=== PATIENT | female | born 1940 | race Caucasian/White ===

== ENCOUNTER 2018-05-10 21:57 | Observation (INO) ==
[2018-05-10] MEDS ORDERED: Piperacil/Tazo 3.375 GM Premix 50 ML IV.SIG ONE (22:11)
--- NOTE | 2018-05-10 22:23 | ED ---
HPI General Chief complaint: Animal Bite Stated complaint: CAT BITE Time Seen by Provider: 05/10/18 22:07 Source: patient Mode of arrival: ambulatory Limitations: no limitations History of Present Illness HPI narrative: Patient is a 78 year old female who comes in complaining of pain and swelling to her left hand. She was bitten by a feral cat on Sunday and has developed redness and swelling to the area since then. She was seen here yesterday, given a dose of IV Unasyn and refused to stay in the hospital. She was discharged with Clindamycin and Levaquin and took it, but says she noticed redness developing up her arm and became nervous. She denies fever or chills. She denies other symptoms. Severity is moderate. Related Data Home Medications Medication Instructions Recorded Confirmed lisinopril 20 mg PO BID 05/09/18 05/10/18 Previous Rx's Medication Instructions Recorded clindamycin HCl 600 mg PO Q8H 10 Days #60 cap 05/09/18 levofloxacin [Levaquin] 750 mg PO DAILY 10 Days #10 tab 05/09/18 Allergies Allergy/AdvReac Type Severity Reaction Status Date / Time No Known Allergies Allergy Verified 05/10/18 22:49 Review of Systems ROS: all other systems reviewed are negative Constitutional Denies chills and Denies fever(s) ENT Denies dizziness Cardiovascular Denies chest pain and Denies dyspnea Respiratory Denies cough Gastrointestinal Denies abdominal pain Musculoskeletal Denies myalgias and Denies arthralgias Integumentary/Breasts Reports wounds Neurologic Denies focal weakness and Denies numbness [facility] Medical History Medical History Hip pain (Acute) Hypertension (Acute) Social History Social History Substance History: No History of Abuse Second Hand Smoke Exposure: No Smoking Status: Former smoker Tobacco Type: Cigarettes How Often Do You Have a Drink Containing Alcohol: Never Recent Travel in [facility] within the Last 8 Weeks: No Recent Out of Country Travel within the Last 8 Weeks: No Exam Narrative Exam Narrative: GENERAL: Awake and alert, in no acute distress. SKIN: Focused skin assessment warm/dry. Erythema and warmth of the left hand from the wrist to the PIP joints on her fingers. Patch of erythema and warmth to her left bicep. Wounds present to the dorsum of the hand. No definable abscess. HEAD: Atraumatic. Normocephalic. EYES: Pupils equal and round. No scleral icterus. ENT: Mucous membranes pink and moist. NECK: Trachea midline. No JVD. CARDIOVASCULAR: Regular rate and rhythm. No murmur appreciated. RESPIRATORY: No accessory muscle use. Clear to auscultation. Breath sounds equal bilaterally. GASTROINTESTINAL: Abdomen soft, non-tender, nondistended. MUSCULOSKELETAL: No obvious deformities. No clubbing. No cyanosis. Edema of the left hand. Radial pulse intact. NEUROLOGICAL: Awake and alert. No obvious cranial nerve deficits. Motor grossly within normal limits. Normal speech. PSYCHIATRIC: Appropriate mood and affect; insight and judgment normal. Course Initial Documented Vital Signs Temperature 98.1 F 05/10/18 22:03 Pulse Rate 113 H 05/10/18 22:03 Respiratory Rate 20 05/10/18 22:03 Blood Pressure 176/82 H 05/10/18 22:03 Last Documented Vital Signs Temperature 98.1 F 05/10/18 22:03 Pulse Rate 78 05/10/18 22:43 Respiratory Rate 18 05/10/18 22:43 Blood Pressure 133/61 05/10/18 22:43 Medical Decision Making MDM Narrative Medical decision making narrative: Patient is a 78 year old female who comes in complaining of redness and swelling to her left hand and arm. She was here yesterday for the same thing and was advised to stay then for IV antibiotics, but refused. She returns due to worsening symptoms. IV established, labs sent. WBC count is 11.6 today, slightly increased from yesterday. Patient given IV Zosyn. She will be admitted for further management. She received the rabies vaccine and immunoglobulin yesterday. Medical Screen Exam Complete: Yes Emergency Medical Condition: Yes Differential Diagnosis Differential Diagnosis: cellulitis vs abscess vs bacteremia Medical Records Medical records reviewed: Yes I reviewed the patient's medical records. Lab Data Lab results reviewed: Yes I reviewed the patient's lab results. Result diagrams: 05/10/18 22:20 05/10/18 22:20 Lab Results 05/10/18 05/10/18 Range/Units 22:20 22:20 CBC w Diff Auto diff final WBC 11.6 H (4.0-11.0) th/mm3 RBC 3.66 L (4.00-5.30) mil/mm3 Hgb 11.7 (11.6-15.3) gm/dL Hct 34.4 L (35.0-46.0) % MCV 93.8 (80.0-100.0) fL MCH 32.0 (27.0-34.0) pg MCHC 34.1 (32.0-36.0) % RDW 12.1 (11.6-17.2) % Plt Count 346 (150-450) th/mm3 MPV 7.9 (7.0-11.0) fL Neut % (Auto) 88.5 H (16.0-70.0) % Lymph % (Auto) 5.8 L (9.0-44.0) % Reeves % (Auto) 4.8 (0.0-8.0) % Eos % (Auto) 0.1 (0.0-4.0) % Baso % (Auto) 0.8 (0.0-2.0) % Neut # (Auto) 10.2 H (1.8-7.7) th/mm3 Lymph # (Auto) 0.7 L (1.0-4.8) th/mm3 Reeves # (Auto) 0.6 (0.0-0.9) th/mm3 Eos # (Auto) 0.0 (0.0-0.4) th/mm3 Baso # (Auto) 0.1 (0.0-0.2) th/mm3 WBC Differential . Differential Comment . Sodium 131 L (136-145) meq/L Potassium 4.1 (3.5-5.1) meq/L Chloride 99 (98-107) meq/L Carbon Dioxide 20.8 L (21.0-32.0) meq/L Anion Gap 11 (5-15) meq/L BUN 22 H (7-18) mg/dL Creatinine 1.30 H (0.50-1.00) mg/dL Estimated GFR 40 L (>89) mL/min Random Glucose 109 H (74-106) mg/dL Calcium 9.2 (8.5-10.1) mg/dL Total Bilirubin 0.7 (0.2-1.0) mg/dL AST 20 (15-37) U/L ALT 22 (10-53) U/L Total Protein 7.8 (6.4-8.2) g/dL Albumin 3.4 (3.4-5.0) g/dL Discharge Plan Discharge Disposition Patient Disposition: 30 Still Patient Discharge Condition Condition: Stable Discharge Details Diagnosis: Cat bite, Cellulitis Physicians Team ED Provider: Merlyn Peterson Primary Care Provider: Kae Fierro Rxs /Orders / Referrals /Forms Prescriptions: No Action lisinopril 20 mg Tablet 20 mg PO BID RF: 0 clindamycin HCl 300 mg capsule 600 mg PO Q8H 10 Days Qty: 60 RF: 0 levofloxacin [Levaquin] 750 mg tablet 750 mg PO DAILY 10 Days Qty: 10 RF: 0 Status ED Status: Triaged
[2018-05-10 22:35] LABS: Baso # (Auto) 0.1 th/mm3 (0.0-0.2); Baso % (Auto) 0.8 % (0.0-2.0); Eos % (Auto) 0.1 % (0.0-4.0); Hematocrit 34.4 % (35.0-46.0); Hemoglobin 11.7 gm/dL (11.6-15.3); Lymph # (Auto) 0.7 th/mm3 (1.0-4.8); Lymph % (Auto) 5.8 % (9.0-44.0); Mean Corpuscular HGB Conc 34.1 % (32.0-36.0); Mean Corpuscular Volume 93.8 fL (80.0-100.0); Mean Platelet Volume 7.9 fL (7.0-11.0); Mono # (Auto) 0.6 th/mm3 (0.0-0.9); Mono % (Auto) 4.8 % (0.0-8.0); Neut # (Auto) 10.2 th/mm3 (1.8-7.7); Neut % (Auto) 88.5 % (16.0-70.0); Platelet Count 346 th/mm3 (150-450); Red Blood Count 3.66 mil/mm3 (4.00-5.30); Red Cell Distribution Width 12.1 % (11.6-17.2); White Blood Count 11.6 th/mm3 (4.0-11.0)
[2018-05-10 22:45] LABS: Chloride 99 meq/L (98-107); Potassium 4.1 meq/L (3.5-5.1); Sodium 131 meq/L (136-145)
[2018-05-10 22:48] LABS: Calcium 9.2 mg/dL (8.5-10.1)
[2018-05-10 22:49] LABS: Albumin 3.4 g/dL (3.4-5.0); Anion Gap 11 meq/L (5-15); Blood Urea Nitrogen 22 mg/dL (7-18); Carbon Dioxide 20.8 meq/L (21.0-32.0); Glucose,Random 109 mg/dL (74-106)
[2018-05-10 22:52] LABS: Alanine Aminotransferase 22 U/L (10-53); Aspartate Aminotransferase 20 U/L (15-37); Glomerular Filtration Rate 40 mL/min (>89)
[2018-05-10 22:54] LABS: Total Protein 7.8 g/dL (6.4-8.2)
[2018-05-10 22:55] LABS: Alkaline Phosphatase 72 U/L (45-117)
[2018-05-10] MEDS ORDERED: Sodium Chlor 0.9% Inj 500 ML IV.SIG SCH (23:00)
[2018-05-10] MEDS ORDERED: Vancomycin Consult Pharmacy OTHER PRN (23:04)
[2018-05-10] MEDS ORDERED: Bisacodyl 10 MG Supp RECTAL PRN (23:05)
[2018-05-10] MEDS: Sod Chloride 0.9% Inj 1,000 ML IV.CONT SCH (23:26)
[2018-05-11] MEDS ORDERED: Vancomycin Inj 1,000 MG in Sodium Chlor 0.9% Inj 250 ML IV.SIG ONE ×2
[2018-05-11] MEDS: Ampicillin/Sulbactam Inj 3 GM in Sodium Chloride 0.9% Inj 100 ML IV.SIG SCH ×4 (03:07→21:39)
[2018-05-11 07:35] LABS: Baso % (Auto) 0.3 % (0.0-2.0); Eos % (Auto) 0.4 % (0.0-4.0); Hematocrit 31.3 % (35.0-46.0); Hemoglobin 10.4 gm/dL (11.6-15.3); Lymph # (Auto) 0.8 th/mm3 (1.0-4.8); Lymph % (Auto) 10.7 % (9.0-44.0); Mean Corpuscular HGB Conc 33.2 % (32.0-36.0); Mean Corpuscular Hemoglobin 31.3 pg (27.0-34.0); Mean Corpuscular Volume 94.1 fL (80.0-100.0); Mean Platelet Volume 7.9 fL (7.0-11.0); Mono # (Auto) 0.8 th/mm3 (0.0-0.9); Mono % (Auto) 10.3 % (0.0-8.0); Neut # (Auto) 6.2 th/mm3 (1.8-7.7); Neut % (Auto) 78.3 % (16.0-70.0); Platelet Count 334 th/mm3 (150-450); Red Blood Count 3.33 mil/mm3 (4.00-5.30); Red Cell Distribution Width 12.1 % (11.6-17.2); White Blood Count 7.8 th/mm3 (4.0-11.0)
[2018-05-11 07:41] LABS: Chloride 106 meq/L (98-107); Potassium 4.1 meq/L (3.5-5.1); Sodium 138 meq/L (136-145)
[2018-05-11 07:45] LABS: Calcium 8.6 mg/dL (8.5-10.1)
[2018-05-11 08:06] LABS: Alanine Aminotransferase 18 U/L (10-53); Albumin 3.1 g/dL (3.4-5.0); Alkaline Phosphatase 60 U/L (45-117); Anion Gap 9 meq/L (5-15); Aspartate Aminotransferase 17 U/L (15-37); Blood Urea Nitrogen 17 mg/dL (7-18); Carbon Dioxide 22.7 meq/L (21.0-32.0); Glomerular Filtration Rate 48 mL/min (>89); Glucose,Random 84 mg/dL (74-106); Total Protein 6.6 g/dL (6.4-8.2)
[2018-05-11] MEDS: Acetaminophen 325 MG Tablet PO PRN ×4 (09:02→21:38)
[2018-05-11] MEDS: Sod Chloride 0.9% Inj 1,000 ML IV.CONT SCH (09:18)
--- NOTE | 2018-05-11 11:30 | P.HP ---
History of Present Illness Service: Hospitalist Primary Care Physician: Kae Fierro MD Chief Complaint: Cat bite. History of Present Illness: Ms. Tan is a pleasant 78-year-old female with a history of hypertension who presents to the emergency department on 05/10/2018 due to a cat bite on her left arm which caused pain and swelling. On 04/04/2018, patient was trying to trap a feral cat when the cat bit her left hand and forearm area. She developed some pain and redness. She was seen in the emergency department the day prior to this admission. Patient refused to stay in the hospital. She was discharged on clindamycin and Levaquin. Due to worsening of her symptoms including erythema, patient decided to come back to the hospital and subsequently she was admitted. She was started on Unasyn as well as vancomycin. Past medical history: Hip pain, hypertension Past surgical history: No previous major surgeries. Family history: No family history of all tremors of Parkinson's Social history: Patient denies using tobacco or alcohol. Review of Systems All other systems reviewed negative except as stated in HPI [facility] - History History Provided By: Patient - Medical History Medical History: Medical History (Last Reviewed 05/11/18 @ 13:50 by Tori Patel DO) Hip pain Hypertension - Surgical History Surgical History: Surgical History (Last Reviewed 05/11/18 @ 13:50 by Tori Patel DO) S/P appendectomy S/P tonsillectomy and adenoidectomy - Tobacco History Second Hand Smoke Exposure: No Tobacco Use In Past 30 Days: No Smoking Status: Former smoker Tobacco Type: Cigarettes - Alcohol History How Often Do You Have a Drink Containing Alcohol: Never - Substance Use History Substance History: No History of Abuse - Travel History Recent Travel in the [place] Within the Last 8 Weeks: No Recent Travel Out of the Country Within the Last 8 Weeks: No - Immunization History Tetanus Immunization: <5 Years Hx Influenza Vaccine This Season: No Medications and Allergies Active Medications: Active Medications Acetaminophen (Tylenol) 650 mg PO Q4H PRN PRN Reason: Headache, fever, pain 1-4 Last Admin: 05/11/18 09:02 Dose: 650 mg Al Hydroxide/Mg Hydroxide (Milk Of Magnesia Liq) 30 ml PO Q12H PRN PRN Reason: Mild Constipation Bisacodyl (Dulcolax Supp) 10 mg RECTAL DAILY PRN PRN Reason: SEVERE CONSITIPATION Ampicillin Sodium/Sulbactam (Sodium 3 gm/ Sodium Chloride) 100 mls @ 200 mls/ hr IV.SIG Q6H ENRIQUETA Last Admin: 05/11/18 09:03 Dose: 200 mls/hr Sodium Chloride (Ns Inj) 1,000 mls @ 100 mls/hr IV.CONT .Q10H ENRIQUETA Last Infusion: 05/11/18 00:18 Dose: 100 mls/hr Vancomycin HCl 1,250 mg/ (Sodium Chloride) 262.5 mls @ 250 mls/hr IV.SIG Q24H ENRIQUETA Lactulose (Lactulose Liq) 30 ml PO DAILY PRN PRN Reason: SEVERE CONSITIPATION Miscellaneous Information ([facility] Ordered Lab Info) 0 each OTHER ONCE ONE Stop: 05/13/18 20:46 Ondansetron HCl (Zofran Inj) 4 mg IV.PUSH Q6H PRN PRN Reason: NAUSEA OR VOMITING Pharmacy Profile Note (Vancomycin Consult Pharmacy) 1 each OTHER UNSCH PRN PRN Reason: Pharmacy to dose Senna/Docusate Sodium (Cheri-Colace) 1 tab PO BID ENRIQUETA Sennosides (Senokot) 17.2 mg PO Q12H PRN PRN Reason: Moderate Constipation Allergies Allergy/AdvReac Type Severity Reaction Status Date / Time No Known Allergies Allergy Verified 05/10/18 22:49 Home Medications Medication Instructions Recorded Confirmed Type lisinopril 20 mg PO BID 05/09/18 05/10/18 History Exam Vital signs: Vital Signs 05/10/18 22:03 05/10/18 22:43 05/11/18 00:00 Temperature 98.1 F 98.7 F Pulse Rate 113 H 78 85 Respiratory Rate 20 18 20 Blood Pressure 176/82 H 133/61 171/77 H Pulse Oximetry 99 05/11/18 04:00 05/11/18 08:00 Temperature 98.2 F 98.8 F Pulse Rate 84 95 H Respiratory Rate 20 21 Blood Pressure 125/62 144/62 H Pulse Oximetry 97 97 Intake & Output 05/10/18 05/11/18 05/11/18 18:59 06:59 18:59 Intake Total 1390 / 1390 200 / 200 Output Total 200 / 200 Balance 1390 / 1390 0 / 0 Weight 83.7 kg Intake: IV 1000 / 1000 NS Inj 1,000 ML @ 100 mls/hr IV 100 / 100 .CONT .Q10H ENRIQUETA Rx#:[id number] Unasyn Inj 3 GM In NS Inj 100 100 / 100 ML @ 200 mls/hr IV.SIG Q6H ENRIQUETA Rx#:[id number] Zosyn 3.375 GM Premix 50 ML @ 50 / 50 100 mls/hr IV.SIG ONCE ONE Rx#: [id number] NS Inj 500 ML @ 1000 mls/hr IV. 500 / 500 SIG BOLUS ENRIQUETA Rx#:[id number] Vancomycin Inj 1,000 MG In NS 250 / 250 Inj 250 ML @ 250 mls/hr IV.SIG ONCE ONE Rx#:[id number] Oral 240 / 240 200 / 200 Other 150 / 150 Output: Urine 200 / 200 Other: Other Intake Source Saline Solution # Voids 1 Weight On Admission 83.461 kg Narrative: GENERAL: This is a well-nourished, well-developed patient, in no apparent distress. SKIN: No rashes, ecchymoses or lesions. Warm and dry. HEAD: Atraumatic. Normocephalic. No temporal or scalp tenderness. EYES: Pupils equal round and reactive. No injection or drainage. ENT: Nose without bleeding, purulent drainage or septal hematoma. Airway patent. NECK: Trachea midline. No lymphadenopathy. Supple, nontender, no meningeal signs. CARDIOVASCULAR: Regular rate and rhythm without murmurs, gallops, or rubs. No JVD. RESPIRATORY: Clear to auscultation. Breath sounds equal bilaterally. No wheezes , rales, or rhonchi. GASTROINTESTINAL: Abdomen soft, non-tender, nondistended. No guarding. MUSCULOSKELETAL: Extremities without clubbing, cyanosis. Left hand and forearm significantly swollen and tender to palpation. Right hand unremarkable. NEUROLOGICAL: Awake and alert. Cranial nerves II through XII intact. No focal neurological deficits. Normal speech. Results - Labs CBC & Chem 7: 05/11/18 07:00 05/11/18 07:00 Labs: Laboratory Results - last 24 hr 05/10/18 05/10/18 05/11/18 22:20 22:20 07:00 CBC w Diff Auto diff final Auto diff final WBC 11.6 H 7.8 RBC 3.66 L 3.33 L Hgb 11.7 10.4 L Hct 34.4 L 31.3 L MCV 93.8 94.1 MCH 32.0 31.3 MCHC 34.1 33.2 RDW 12.1 12.1 Plt Count 346 334 MPV 7.9 7.9 Neut % (Auto) 88.5 H 78.3 H Lymph % (Auto) 5.8 L 10.7 Ware % (Auto) 4.8 10.3 H Eos % (Auto) 0.1 0.4 Baso % (Auto) 0.8 0.3 Neut # (Auto) 10.2 H 6.2 Lymph # (Auto) 0.7 L 0.8 L Ware # (Auto) 0.6 0.8 Eos # (Auto) 0.0 0.0 Baso # (Auto) 0.1 0.0 WBC Differential . . Differential Comment . . Sodium 131 L Potassium 4.1 Chloride 99 Carbon Dioxide 20.8 L Anion Gap 11 BUN 22 H Creatinine 1.30 H Estimated GFR 40 L Random Glucose 109 H Calcium 9.2 Total Bilirubin 0.7 AST 20 ALT 22 Alkaline Phosphatase 72 Total Protein 7.8 Albumin 3.4 05/11/18 07:00 CBC w Diff WBC RBC Hgb Hct MCV MCH MCHC RDW Plt Count MPV Neut % (Auto) Lymph % (Auto) Ware % (Auto) Eos % (Auto) Baso % (Auto) Neut # (Auto) Lymph # (Auto) Ware # (Auto) Eos # (Auto) Baso # (Auto) WBC Differential Differential Comment Sodium 138 Potassium 4.1 Chloride 106 Carbon Dioxide 22.7 Anion Gap 9 BUN 17 Creatinine 1.10 H Estimated GFR 48 L Random Glucose 84 Calcium 8.6 Total Bilirubin 0.6 AST 17 ALT 18 Alkaline Phosphatase 60 Total Protein 6.6 D Albumin 3.1 L - Imaging Forearm X-Ray 05/11/18 00:00 CONCLUSION: Prominent soft tissue swelling. Hand X-Ray 05/11/18 00:00 CONCLUSION: Dorsal predominant soft tissue swelling. Focally increased density along the dorsal margin of the second metacarpal head as described. No other acute bony abnormalities are demonstrated. Caprini VTE Risk Assessment Caprini VTE Risk Assessment: No/Low Risk (score <= 1) Caprini Risk Assessment Model: Point Value = 1 Point Value = 2 Point Value = 3 Point Value = 5 Age 41-60 Minor surgery BMI > 25 kg/m2 Swollen legs Varicose veins or History of unexplained or recurrent spontaneous Oral contraceptives or hormone replacement Sepsis (< 1 month) Serious lung disease, including pneumonia (< 1 month) Abnormal pulmonary function Acute myocardial infarction Congestive heart failure (< 1 month) History of inflammatory bowel disease Medical patient at bed rest Age 61-74 Arthroscopic surgery Major open surgery (> 45 min) Laparoscopic surgery (> 45 min) Malignancy Confined to bed (> 72 hours) Immobilizing plaster cast Central venous access Age >= 75 History of VTE Family history of VTE Factor V Leiden Prothrombin [id number] Lupus anticoagulant Anticardiolipin antibodies Elevated serum homocysteine Heparin-induced thrombocytopenia Other congenital or acquired thrombophilia Stroke (< 1 month) Elective arthroplasty Hip, pelvis, or leg fracture Acute spinal cord injury (< 1 month) Prophylaxis Regimen: Total Risk Factor Score Risk Level Prophylaxis Regimen 0-1 Low Early ambulation 2 Moderate Order ONE of the following: *Sequential Compression Device (SCD) *Heparin 5000 units SQ BID 3-4 Higher Order ONE of the following medications: *Heparin 5000 units SQ TID *Enoxaparin/Lovenox 40 mg SQ daily (WT < 150 kg, CrCl > 30 mL/min) *Enoxaparin/Lovenox 30 mg SQ daily (WT < 150 kg, CrCl > 10-29 mL/min) *Enoxaparin/Lovenox 30 mg SQ BID (WT < 150 kg, CrCl > 30 mL/min) AND/OR *Sequential Compression Device (SCD) 5 or more Highest Order ONE of the following medications: *Heparin 5000 units SQ TID (Preferred with Epidurals) *Enoxaparin/Lovenox 40 mg SQ daily (WT < 150 kg, CrCl > 30 mL/min) *Enoxaparin/Lovenox 30 mg SQ daily (WT < 150 kg, CrCl > 10-29 mL/min) *Enoxaparin/Lovenox 30 mg SQ BID (WT < 150 kg, CrCl > 30 mL/min) AND *Sequential Compression Device (SCD) Assessment and Plan - Plan Ms. Tan is a pleasant 78-year-old female with a history of hypertension who presented to the emergency department on 05/10/2018 due to worsening pain and swelling as well as erythema of her left hand and forearm. She was bit by a feral cat on 05/05/2018 as she was trying to trap the cat. Acute left upper extremity cellulitis due to cat bite Continue Unasyn 3 g every 6 hours. Discontinue vancomycin. X-ray shows soft tissue swelling. Will obtain MRI studies without contrast. Discussed with hand surgeon who will evaluate patient later today or tomorrow morning. Tylenol for pain management. Hypertension Blood pressure was 171/77 then 125/62 and now 144/62. We will continue to monitor. If needed, will consider calcium channel lev for hypertension. Full code. SCDs. Ambulation.
[2018-05-11] MEDS: Senna/Docusate Sodium 8.6/50 MG Tablet PO SCH ×2 (11:52→21:45)
--- NOTE | 2018-05-11 13:09 | XR ---
EXAM DATE: 05/11/2018 12:59 PM EST AGE/SEX: 78 years / Female INDICATIONS: Multiple cat bites left forearm and hand with infection CLINICAL DATA: This is the patient's initial encounter. Patient reports that signs and symptoms have been present for 1 week and indicates a pain score of 2/10. MEDICAL/SURGICAL HISTORY: None. None. COMPARISON: [facility], HAND COMPLETE LEFT MIN 3V, 05/11/2018. . FINDINGS: No fractures are seen. There is prominent soft tissue swelling over the dorsum of the hand and forear m. CONCLUSION: Prominent soft tissue swelling. Electronically signed by: Zaid Sandhu MD 05/11/2018 1:08 PM EST
--- NOTE | 2018-05-11 13:12 | XR ---
EXAM DATE: 05/11/2018 1:01 PM EST AGE/SEX: 78 years / Female INDICATIONS: Cat bites. multiple, to left hand and forearm with infection CLINICAL DATA: This is the patient's initial encounter. Patient reports that signs and symptoms have been present for 1 week and indicates a pain score of 2/10. MEDICAL/SURGICAL HISTORY: None. None. COMPARISON: [facility], FOREARM LEFT 2V, 05/11/2018. . FINDINGS: Fairly generalized but dorsal predominant soft tissue swelling is demonstrated. There is focally incr eased density dorsal to one of the metacarpal heads, probably the second, which may be some age-indet erminate fragmentation of the bone or osseous debris in the soft tissues or extensor mechanism. No ot her acute bony abnormalities are demonstrated. I don't see a radiopaque foreign body. No subluxations. Mild metacarpophalangeal and interphalangeal osteoarthritis noted. CONCLUSION: Dorsal predominant soft tissue swelling. Focally increased density along the dorsal margin of the sec ond metacarpal head as described. No other acute bony abnormalities are demonstrated. Electronically signed by: Stan Osborne MD 05/11/2018 1:11 PM EST
[2018-05-11] MEDS ORDERED: Vancomycin Inj 1,250 MG in Sodium Chlor 0.9% Inj 250 ML IV.SIG SCH (21:00)
[2018-05-12] MEDS: Acetaminophen 325 MG Tablet PO PRN ×4 (01:37→14:18)
[2018-05-12] MEDS: Ampicillin/Sulbactam Inj 3 GM in Sodium Chloride 0.9% Inj 100 ML IV.SIG SCH ×4 (03:45→21:33)
[2018-05-12] MEDS: Senna/Docusate Sodium 8.6/50 MG Tablet PO SCH ×2 (10:08→21:32)
--- NOTE | 2018-05-12 12:19 | MR ---
EXAM DATE: 05/12/2018 9:41 AM EST AGE/SEX: 78 years / Female INDICATIONS: Left hand cat bite. CLINICAL DATA: This is the patient's initial encounter. Patient reports that signs and symptoms have been present for 1 day and indicates a pain score of 5/10. MEDICAL/SURGICAL HISTORY: Hypertension. Appendectomy. Tonsillectomy. COMPARISON: No prior exams available for comparison. TECHNIQUE: Multiplanar, multisequence MRI examination was performed without contrast. FINDINGS: There is subcutaneous edema in the forearm predominantly on the ulnar aspect with soft tissue swellin g present. There is some mild inflammatory change in the underlying musculature but no marrow signal abnormalities are seen to suggest osteomyelitis. There is no significant effusion at the wrist joint. No discrete or drainable abscess is identified. CONCLUSION: 1. Cellulitis of the forearm, predominantly on the ulnar aspect some mild inflammatory/edematous karen nges in the adjacent musculature as well. No marrow signal abnormality seen to suggest osteomyelitis. No discrete abscess is seen. Electronically signed by: Francois Matos MD 05/12/2018 12:18 PM EST
--- NOTE | 2018-05-12 12:26 | MR ---
EXAM DATE: 05/12/2018 9:23 AM EST AGE/SEX: 78 years / Female INDICATIONS: Edema. Left hand cat bite. CLINICAL DATA: This is the patient's initial encounter. Patient reports that signs and symptoms have been present for 1 day and indicates a pain score of 5/10. MEDICAL/SURGICAL HISTORY: Hypertension. Appendectomy. Tonsillectomy. COMPARISON: No prior exams available for comparison. TECHNIQUE: Multiplanar, multisequence MRI examination was performed without contrast. FINDINGS: There is subcutaneous edema and swelling predominantly on the dorsum of the hand with a small loculat ed fluid collection overlying the third metacarpal measuring about 1.2 cm in diameter, likely a small subcutaneous abscess. No marrow signal abnormalities seen to suggest osteomyelitis. No tendon ruptur e identified. No significant tenosynovitis. CONCLUSION: 1. Cellulitis predominantly on the dorsum of the hand with small subcutaneous abscess overlying the third metacarpal measuring about 12 mm. No evidence for osteomyelitis. Electronically signed by: Francois Matos MD 05/12/2018 12:24 PM EST
--- NOTE | 2018-05-12 12:51 | P.PN ---
Subjective Interval history: Follow-up for left upper extremity -hand and forearm infection due to cat bite. Patient is currently doing well. She reports improvement of her symptoms. She is waiting for hand surgery to do I&D today. MRI showed. Physical Exam Vital signs: Vital Signs 05/11/18 14:26 05/11/18 16:00 05/11/18 18:10 Temperature 98.2 F Pulse Rate 78 Respiratory Rate 18 20 18 Blood Pressure 137/64 Pulse Oximetry 97 05/11/18 20:00 05/12/18 00:00 05/12/18 04:00 Temperature 98.3 F 99.4 F 98.2 F Pulse Rate 81 80 Respiratory Rate 20 20 Blood Pressure 125/81 153/70 H Pulse Oximetry 95 96 05/12/18 08:00 Temperature 97.2 F L Pulse Rate 87 Respiratory Rate 20 Blood Pressure 150/77 H Pulse Oximetry 97 Intake & Output 05/11/18 05/12/18 05/12/18 18:59 06:59 18:59 Intake Total 1920 / 1920 200 / 200 100 / 100 Output Total 600 / 600 Balance 1320 / 1320 200 / 200 100 / 100 Weight 84 kg Intake: IV 1000 / 1000 200 / 200 100 / 100 NS Inj 1,000 ML @ 100 mls/hr IV 800 / 800 .CONT .Q10H ENRIQUETA Rx#:[id number] Unasyn Inj 3 GM In NS Inj 100 200 / 200 200 / 200 100 / 100 ML @ 200 mls/hr IV.SIG Q6H ENRIQUETA Rx#:[id number] Oral 920 / 920 0 / 0 Output: Urine 600 / 600 Other: # Voids 4 Narrative: GENERAL: This is a well-nourished, well-developed patient, in no apparent distress. SKIN: No rashes, ecchymoses or lesions. Warm and dry. HEAD: Atraumatic. Normocephalic. No temporal or scalp tenderness. EYES: Pupils equal round and reactive. No injection or drainage. ENT: Nose without bleeding, purulent drainage or septal hematoma. Airway patent. NECK: Trachea midline. No lymphadenopathy. Supple, nontender, no meningeal signs. CARDIOVASCULAR: Regular rate and rhythm without murmurs, gallops, or rubs. No JVD. RESPIRATORY: Clear to auscultation. Breath sounds equal bilaterally. No wheezes , rales, or rhonchi. GASTROINTESTINAL: Abdomen soft, non-tender, nondistended. No guarding. MUSCULOSKELETAL: Extremities without clubbing, cyanosis. Left hand and forearm significantly swollen and tender to palpation. Right hand unremarkable. NEUROLOGICAL: Awake and alert. Cranial nerves II through XII intact. No focal neurological deficits. Normal speech. Results - Labs CBC & Chem 7: 05/11/18 07:00 05/11/18 07:00 Microbiology 05/10/18 22:20 Blood - Peripheral Aerobic Blood Culture - Preliminary No growth in 2 days 05/10/18 22:20 Blood - Peripheral Anaerobic Blood Culture - Preliminary No growth in 2 days 05/10/18 22:10 Blood - Peripheral Aerobic Blood Culture - Preliminary No growth in 2 days 05/10/18 22:10 Blood - Peripheral Anaerobic Blood Culture - Preliminary No growth in 2 days - Imaging Impressions Forearm X-Ray 05/11/18 00:00 CONCLUSION: Prominent soft tissue swelling. Hand X-Ray 05/11/18 00:00 CONCLUSION: Dorsal predominant soft tissue swelling. Focally increased density along the dorsal margin of the second metacarpal head as described. No other acute bony abnormalities are demonstrated. Forearm MRI 05/12/18 00:00 CONCLUSION: 1. Cellulitis of the forearm, predominantly on the ulnar aspect some mild inflammatory/edematous changes in the adjacent musculature as well. No marrow signal abnormality seen to suggest osteomyelitis. No discrete abscess is seen. Hand MRI 05/12/18 00:00 CONCLUSION: 1. Cellulitis predominantly on the dorsum of the hand with small subcutaneous abscess overlying the third metacarpal measuring about 12 mm. No evidence for osteomyelitis. - Procedures Left hand I&D by hand surgery 05/12/2018. Assessment and Plan - Plan Ms. Tan is a pleasant 78-year-old female with a history of hypertension who presented to the emergency department on 05/10/2018 due to worsening pain and swelling as well as erythema of her left hand and forearm. She was bit by a feral cat on 05/05/2018 as she was trying to trap the cat. Acute left upper extremity cellulitis due to cat bite Continue Unasyn 3 g every 6 hours. Discontinued vancomycin. X-ray shows soft tissue swelling. MRI without contrast showed abscess. Status post I&D by hand surgery today. Possible discharge home based on ID recommendations. Patient can probably go home on Augmentin. Hypertension Blood pressure was slightly elevated today as well. Continue home medication lisinopril. Full code. SCDs. Ambulation.
[2018-05-12] MEDS ORDERED: Lisinopril 20 MG Tablet PO ONE (13:00)
[2018-05-12] MEDS ORDERED: fentaNYL Citrate Inj 100 MCG/2 ML Ampul ONE ×2 (14:34→14:46)
[2018-05-12] MEDS ORDERED: Lidocaine 2% Inj 50 ML Vial ONE (14:48)
[2018-05-12] MEDS ORDERED: Neomycin/Polymyxin G.U. Irrigant 1 ML Ampul ONE (14:48)
--- NOTE | 2018-05-12 16:23 | P.PNOP ---
Physical Exam Vital signs: Vital Signs 05/11/18 18:10 05/11/18 20:00 05/12/18 00:00 Temperature 98.3 F 99.4 F Pulse Rate 81 80 Respiratory Rate 18 20 20 Blood Pressure 125/81 153/70 H Pulse Oximetry 95 96 05/12/18 04:00 05/12/18 08:00 05/12/18 12:00 Temperature 98.2 F 97.2 F L 97.1 F L Pulse Rate 87 68 Respiratory Rate 20 19 Blood Pressure 150/77 H 165/76 H Pulse Oximetry 97 97 05/12/18 15:07 Temperature 97.2 F L Pulse Rate 87 Respiratory Rate 20 Blood Pressure 150/77 H Pulse Oximetry 97 Intake & Output 05/11/18 05/12/18 05/12/18 18:59 06:59 18:59 Intake Total 1920 / 1920 200 / 200 340 / 340 Output Total 600 / 600 200 / 200 Balance 1320 / 1320 200 / 200 140 / 140 Weight 84 kg Intake: IV 1000 / 1000 200 / 200 100 / 100 NS Inj 1,000 ML @ 100 mls/hr IV 800 / 800 .CONT .Q10H ENRIQUETA Rx#:[id number] Unasyn Inj 3 GM In NS Inj 100 200 / 200 200 / 200 100 / 100 ML @ 200 mls/hr IV.SIG Q6H ENRIQUETA Rx#:[id number] Oral 920 / 920 0 / 0 240 / 240 Output: Urine 600 / 600 200 / 200 Other: # Voids 4 Results - Labs CBC & Chem 7: 05/11/18 07:00 05/11/18 07:00 Microbiology 05/10/18 22:20 Blood - Peripheral Aerobic Blood Culture - Preliminary No growth in 2 days 05/10/18 22:20 Blood - Peripheral Anaerobic Blood Culture - Preliminary No growth in 2 days 05/10/18 22:10 Blood - Peripheral Aerobic Blood Culture - Preliminary No growth in 2 days 05/10/18 22:10 Blood - Peripheral Anaerobic Blood Culture - Preliminary No growth in 2 days - Imaging Impressions Forearm MRI 05/12/18 00:00 CONCLUSION: 1. Cellulitis of the forearm, predominantly on the ulnar aspect some mild inflammatory/edematous changes in the adjacent musculature as well. No marrow signal abnormality seen to suggest osteomyelitis. No discrete abscess is seen. Hand MRI 05/12/18 00:00 CONCLUSION: 1. Cellulitis predominantly on the dorsum of the hand with small subcutaneous abscess overlying the third metacarpal measuring about 12 mm. No evidence for osteomyelitis. Assessment and Plan - Assessment and Plan 78yF POD0 s/p I&D left hand, sagittal band repair, I&D left middle finger mcp joint -Elevate left hand and gentle ROM -Follow cultures, follow ID recs -Infection did involved the MCP joint, no tendon laceration -Once Ab determined followup in office likely 05/20
[2018-05-12] MEDS ORDERED: Morphine Sulfate Inj 2 MG/ML Vial ONE ×2 (16:26→17:19)
[2018-05-12] MEDS ORDERED: Chlorhexidine Gluconate 2% 1 Pack (2 Cloths) TOPICAL ONE (16:31)
[2018-05-12] MEDS ORDERED: Metoprolol Tartrate 25 MG Tablet PO ONE (16:31)
[2018-05-12] MEDS ORDERED: Morphine Inj 4 MG/ML Vial ONE ×2 (16:32→16:47)
[2018-05-12] MEDS ORDERED: Sodium Chlor 0.9% Inj 500 ML IV.SIG SCH (17:00)
--- NOTE | 2018-05-12 17:52 | MB ---
cc: Isabel Singh MD DATE: 05/12/2018 REASON FOR CONSULTATION: Cat bite, left hand. HISTORY OF PRESENT ILLNESS: Monet Tan is a 78-year-old female who was admitted on 05/10/2018 and I was consulted yesterday on 05/11/2018 for a cat bite to the left hand. The patient states the cat bite occurred to the left hand approximately 1 week ago. 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 The patient did present to the hospital earlier in the week, but declined admission. She was taking oral clindamycin, Levaquin, but re-presented to the emergency room on 05/10/2018 with worsening pain and swelling in the hand. Yesterday, the hospitalist stated the patient did have improvement on IV antibiotics. I recommended an MRI and close evaluation. MRI was completed this morning. The patient reports multiple prior cat bites over the upper extremities, but none requiring surgery. She does live alone. She does walk with a cane. Otherwise, relatively healthy. Does have past medical history significant for hypertension. In the hospital, the patient has been on Unasyn and vancomycin with improvement in the swelling, but persistent pain over the left middle finger. The patient denies any paresthesias. PAST MEDICAL HISTORY: Hypertension. PAST SURGICAL HISTORY: Appendectomy, tonsillectomy. SOCIAL HISTORY: The patient denies any current tobacco, alcohol or drug use. Again, she lives alone, takes care of multiple feral cats. PHYSICAL EXAMINATION: GENERAL: The patient is alert and oriented. LEFT UPPER EXTREMITY: The left upper extremity shows multiple bites over the left forearm and left hand. There is fluctuance over the dorsum of the left middle finger MCP joint. The patient is unable to fully extend the left middle finger. Function intact of FDS and FDP. Sensation intact in the median, ulnar and radial distribution. 2+ radial pulse. Moderate swelling over the left hand. Compartments are soft and compressible. LABORATORY DATA: White count 11.6 on admission, decreased to 7.8 yesterday. Blood cultures currently negative. 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 MRI reviewed this morning and discussed with the radiologist, that showed an abscess over the dorsum of the left middle finger, metacarpophalangeal joint. ASSESSMENT AND PLAN: A 78-year-old female with a cat bite to the left hand. At this time, I recommended surgical intervention for debridement of the abscess. Surgery is indicated, possible surgery over the extensor tendon. The patient elected to proceed. She will remain in the hospital on IV antibiotics. MD ARNULFO Lr/tatiana , 04:28 PM , 04:35 PM ASHLEY
--- NOTE | 2018-05-12 17:56 | MP ---
cc: Isabel Singh MD DATE OF OPERATION: 05/12/2018 PREOPERATIVE DIAGNOSES: 1. Cat bite, left hand. 2. Concern for tendon injury, left hand. POSTOPERATIVE DIAGNOSES: 1. Cat bite, left hand. 2. Infection of left middle finger metacarpophalangeal joint. 3. A sagittal band ulnar partial injury. 4. Infection along the left middle finger extensor tendon sheath. PROCEDURES: 1. Irrigation and debridement abscess, left hand, including extensor tendon sheath 2. Metacarpophalangeal joint arthrotomy for infection. 3. Sagittal band repair, left middle finger. 4. Interpretation of fluoroscopy by the surgeon, left hand. SURGEON: Isabel Singh MD JOB DEVELOPMENT SPECIALIST: None. ANESTHESIA: General and local. TOURNIQUET TIME: 23 minutes at 200 mmHg. SPECIMENS: Culture. INDICATIONS FOR PROCEDURE: Monet Tan is a 78-year-old female who sustained a cat bite to her left hand approximately 1 week ago. She initially presented to the emergency room and then refused admission. She represented on 05/10/2018 and did consent to admission. She reports improvement on IV antibiotics. I was called yesterday to evaluate the left hand. MRI today showed concern for an abscess over the left middle finger, metacarpophalangeal joint. I recommended surgical intervention. Risks were explained, which include, but are not limited to wound complication, infection, stiffness, pain, rupture of the tendon, and she elected to proceed. DESCRIPTION OF PROCEDURE: The patient was identified in the preoperative holding and the correct extremity was marked. The patient was taken to the operating room. Anesthesia induced. Left upper extremity was prepped and draped in normal sterile fashion. The fluctuance over the dorsum of the left middle finger, metacarpophalangeal joint was incised. There was significant purulence, which was sent for culture. This extended along the extensor tendon sheath. This was debrided with antibiotic saline and rongeurs. The extensor tendon itself was intact, but there was an open puncture and partial laceration of the ulnar sagittal band to the left middle finger. The infection extended into the left middle finger, metacarpophalangeal joint with some loss of cartilage. Under x-ray, there was arthritis of the joint, but the piece of cartilage loss appeared to be dorsal. The wound was then again irrigated with antibiotic saline and debrided. The sagittal band was repaired with a Prolene. The skin was closed with nylon. Tourniquet was released. Hemostasis was obtained. There was less than 2-second capillary refill to the fingers. The patient was placed into a bulky dressing. Approximately 10 mL of 2% lidocaine without epinephrine was used for local anesthesia. The patient remained in the hospital on IV antibiotics. She should work on elevation and gentle range of motion of the hand. MD ARNULFO Lr/tatiana , 04:37 PM , 04:42 PM ASHLEY
[2018-05-13 00:51] VITALS: RESP 18
[2018-05-13] MEDS: Ampicillin/Sulbactam Inj 3 GM in Sodium Chloride 0.9% Inj 100 ML IV.SIG SCH ×2 (04:12→09:02)
[2018-05-13] MEDS ORDERED: Lisinopril 20 MG Tablet PO SCH (09:00)
[2018-05-13] MEDS: Senna/Docusate Sodium 8.6/50 MG Tablet PO SCH (09:02)
[2018-05-13 09:20] VITALS: BP 131/62
--- NOTE | 2018-05-13 10:59 | P.DS ---
Date of admission: 05/10/18 23:06 Primary care physician: Kae Fierro MD Attending physician on discharge: Tori Patel Anticipated date of discharge: 05/13/18 Brief History from admission: Ms. Tan is a pleasant 78-year-old female with a history of hypertension who presents to the emergency department on 05/10/2018 due to a cat bite on her left arm which caused pain and swelling. On 04/04/2018, patient was trying to trap a feral cat when the cat bit her left hand and forearm area. She developed some pain and redness. She was seen in the emergency department the day prior to this admission. Patient refused to stay in the hospital. She was discharged on clindamycin and Levaquin. Due to worsening of her symptoms including erythema, patient decided to come back to the hospital and subsequently she was admitted. She was started on Unasyn as well as vancomycin. Past medical history: Hip pain, hypertension Past surgical history: No previous major surgeries. Family history: No family history of all tremors of Parkinson's Social history: Patient denies using tobacco or alcohol. Patient update on day of discharge: Patient is doing well. No fever, chills. Wants to go home. DS: Medications - Discharge Medications Prescriptions: amoxicillin-pot clavulanate [Augmentin] 1 tab PO Q12H #28 tab ciprofloxacin HCl 500 mg PO Q12H #28 tab hydrocodone-acetaminophen 1 tab PO Q6H PRN #20 tab PRN Reason: Pain 5-10 DS: Summary Hospital Course: Ms. Tan is a pleasant 78-year-old female with a history of hypertension who presented to the emergency department on 05/10/2018 due to worsening pain and swelling as well as erythema of her left hand and forearm. She was bit by a feral cat on 05/05/2018 as she was trying to trap the cat. Acute left upper extremity cellulitis due to cat bite Continued Unasyn 3 g every 6 hours. Discontinued vancomycin. X-ray shows soft tissue swelling. MRI without contrast showed abscess. Status post I&D by hand surgery. Discussed with ID who recommended Cipro and Augmentin for 2 weeks. -ID will follow patient in the outpatient setting and will follow final culture results as well. -Patient received second dose of Rabies vaccine today (day 3), Day 7 and Day 14 would be 05/17 and 05/24 respectively. Patient can get the two remainder vaccines at the health de[facility]. Hypertension Continue home medication lisinopril. Full code. SCDs. Ambulation. - Time Spent with Patient Total time spent providing and/or coordinating discharge services: Less than 30 minutes - Quality: VTE Deep Vein Thrombosis/Pulmonary Embolism Present on Admission: No Exam Vital signs: Vital Signs 05/12/18 12:00 05/12/18 15:07 05/12/18 16:20 Temperature 97.1 F L 97.2 F L 98 F Pulse Rate 68 87 82 Respiratory Rate 19 20 16 Blood Pressure 165/76 H 150/77 H 116/55 L Pulse Oximetry 97 97 96 05/12/18 16:33 05/12/18 16:43 05/12/18 16:48 Temperature 97.6 F Pulse Rate 70 72 67 Respiratory Rate 16 16 Blood Pressure 138/59 L 150/80 H Pulse Oximetry 96 97 05/12/18 17:18 05/12/18 17:38 05/12/18 20:00 Temperature 98.4 F 97.3 F L Pulse Rate 64 80 71 Respiratory Rate 16 20 16 Blood Pressure 150/86 H 130/60 124/55 L Pulse Oximetry 96 97 95 05/13/18 00:00 05/13/18 08:00 05/13/18 10:56 Temperature 96.9 F L 98.5 F Pulse Rate 63 93 H Respiratory Rate 18 18 18 Blood Pressure 104/51 L 131/62 Pulse Oximetry 96 98 Intake & Output 05/12/18 05/13/18 05/13/18 18:59 06:59 18:59 Intake Total 1470 / 1470 440 / 440 100 / 100 Output Total 400 / 400 Balance 1070 / 1070 440 / 440 100 / 100 Weight 84 kg Intake: IV 100 / 100 200 / 200 100 / 100 Unasyn Inj 3 GM In NS Inj 100 100 / 100 200 / 200 100 / 100 ML @ 200 mls/hr IV.SIG Q6H ENRIQUETA Rx#:[id number] Oral 770 / 770 240 / 240 Anesthesia Amount 450 / 450 Other 150 / 150 Output: Urine 400 / 400 Other: Other Intake Source Saline Solution # Voids 0 3 Narrative: GENERAL: Alert, NAD. SKIN: Warm and dry. HEAD: Normocephalic. EYES: No scleral icterus. No injection or drainage. NECK: Supple, trachea midline. No JVD or lymphadenopathy. CARDIOVASCULAR: Regular rate and rhythm without murmurs, gallops, or rubs. RESPIRATORY: Breath sounds equal bilaterally. No accessory muscle use. GASTROINTESTINAL: Abdomen soft, non-tender, nondistended. MUSCULOSKELETAL: No cyanosis, or edema. Left hand wrapped in dressing, able to move all fingers. BACK: Nontender without obvious deformity. No CVA tenderness. Results Procedures completed during hospitalization: Left hand I&D by hand surgery 05/12/2018. Labs on day of discharge: Preliminary micro results at discharge 05/10/18 22:20 Aerobic Blood Culture - Preliminary Blood - Peripheral No growth in 2 days Anaerobic Blood Culture - Preliminary No growth in 2 days 05/10/18 22:10 Aerobic Blood Culture - Preliminary Blood - Peripheral No growth in 2 days Anaerobic Blood Culture - Preliminary No growth in 2 days - Impressions ITS Impressions Forearm X-Ray 05/11/18 00:00 CONCLUSION: Prominent soft tissue swelling. Hand X-Ray 05/11/18 00:00 CONCLUSION: Dorsal predominant soft tissue swelling. Focally increased density along the dorsal margin of the second metacarpal head as described. No other acute bony abnormalities are demonstrated. Forearm MRI 05/12/18 00:00 CONCLUSION: 1. Cellulitis of the forearm, predominantly on the ulnar aspect some mild inflammatory/edematous changes in the adjacent musculature as well. No marrow signal abnormality seen to suggest osteomyelitis. No discrete abscess is seen. Hand MRI 05/12/18 00:00 CONCLUSION: 1. Cellulitis predominantly on the dorsum of the hand with small subcutaneous abscess overlying the third metacarpal measuring about 12 mm. No evidence for osteomyelitis. Discharge Plan - Discharge Disposition Patient Disposition: Discharge Home - Discharge Condition Condition: Stable - Discharge Order Discharge Orders: Discharge Order (Routine); Ordered 05/13/18 Ordered By: oTri Patel - Discharge Details Anticipated Discharge Date: 05/13/18 Discharge Comment: Please get Rabies shot ( RabAvert) on 05/17 (day 7), and on 05/24 (Day 14) - Can be obtained at the [facility] - Physicians Team Primary Care Provider: Kae Fierro Attending Provider: Tori Patel Other Providers: Isabel Singh MD ; Marga Pandya MD
--- NOTE | 2018-05-13 11:15 | P.CONID ---
History of Present Illness Service: Infectious Disease Consult date: 05/13/18 Requesting Physician: Isabel Singh Reason for Consult: Cat bite infection Primary Care Provider: Kae Fierro MD Chief Complaint: Cat bite. History of Present Illness: 78 /F with known h/o HTN says she was trying to trap a feral cat when it bit her left had on the dorsal surface and also on the wrist. Patient did come to the ER but did not stay and then came back when it got worse. She improved on IV antibiotics but there was an abscess so she was taken to the OR and the lesion was drained and the pus was sent for cultures. Patient at this time says she is much better and is insisting on going home Review of Systems Constitutional: Denies chills, Denies fever(s) Eyes: Denies blurry vision, Denies bulging eyes Ears, Nose, Mouth, and Throat: Denies bleeding gums, Denies bad breath, Denies dry mouth Cardiovascular: Denies chest pain at rest, Denies chest pain with activity, Denies excessive sweating Respiratory: Denies change in phlegm color, Denies chest congestion, Denies cough Gastrointestinal: Denies abdominal pain, Denies change in bowel habits, Denies loose stools Genitourinary: Denies blood in urine, Denies difficulty urinating Musculoskeletal: Denies abnormal walking, Denies body aches Skin/Breast: Denies bleeding lesions, Denies nail changes Neurologic: Denies abnormal hearing, Denies abnormal speech, Denies numbness Psychiatric: Denies confusion, Denies depression PMFSH - History History Provided By: Patient - Medical History Medical History: Medical History (Last Reviewed 05/13/18 @ 09:38 by Estelle Rowe) Hip pain Hypertension - Surgical History Surgical History: Surgical History (Last Reviewed 05/13/18 @ 09:38 by Estelle Rowe) S/P appendectomy S/P tonsillectomy and adenoidectomy - Tobacco History Second Hand Smoke Exposure: No Tobacco Use In Past 30 Days: No Smoking Status: Former smoker Tobacco Type: Cigarettes - Alcohol History How Often Do You Have a Drink Containing Alcohol: Never - Substance Use History Substance History: No History of Abuse - Travel History Recent Travel in the [facility] Within the Last 8 Weeks: No Recent Travel Out of the Country Within the Last 8 Weeks: No - Immunization History Tetanus Immunization: <5 Years Hx Influenza Vaccine This Season: No Medications and Allergies Active Medications: Active Medications Acetaminophen (Tylenol) 650 mg PO Q4H PRN PRN Reason: Headache, fever, pain 1-4 Last Admin: 05/12/18 14:18 Dose: 650 mg Hydrocodone Bitart/Acetaminophen ([place] 5/325) 1 tab PO Q6H PRN PRN Reason: PAIN SCALE 1 TO 5 Last Admin: 05/13/18 04:50 Dose: 1 tab Hydrocodone Bitart/Acetaminophen ([place] 10/325) 1 tab PO Q6H PRN PRN Reason: PAIN SCALE 6 TO 10 Last Admin: 05/13/18 10:56 Dose: 1 tab Al Hydroxide/Mg Hydroxide (Milk Of Magnesia Liq) 30 ml PO Q12H PRN PRN Reason: Mild Constipation Bisacodyl (Dulcolax Supp) 10 mg RECTAL DAILY PRN PRN Reason: SEVERE CONSITIPATION Ampicillin Sodium/Sulbactam (Sodium 3 gm/ Sodium Chloride) 100 mls @ 200 mls/ hr IV.SIG Q6H [facility] Last Infusion: 05/13/18 09:32 Dose: Infused Sodium Chloride (Ns Inj) 500 mls @ 30 mls/hr IV.SIG .Q10H [facility] Last Admin: 05/12/18 19:21 Dose: Not Given Lactated Ringer's (Lr 1000 Ml Inj) 1,000 mls @ 30 mls/hr IV.SIG .Q24H [facility] Stop: 05/13/18 16:44 Last Admin: 05/12/18 15:00 Dose: 30 mls/hr Lactulose (Lactulose Liq) 30 ml PO DAILY PRN PRN Reason: SEVERE CONSITIPATION Lisinopril (Prinivil) 20 mg PO BID [facility] Last Admin: 05/13/18 09:02 Dose: 20 mg Ondansetron HCl (Zofran Inj) 4 mg IV.PUSH Q6H PRN PRN Reason: NAUSEA OR VOMITING Last Admin: 05/12/18 19:20 Dose: 4 mg Rabies Vaccine Chick Embryo Cell (Rabavert Inj) 2.5 units IM .ONCE ONE Stop: 05/13/18 12:01 Senna/Docusate Sodium (Cheri-Colace) 1 tab PO BID [facility] Last Admin: 05/13/18 09:02 Dose: Not Given Sennosides (Senokot) 17.2 mg PO Q12H PRN PRN Reason: Moderate Constipation Allergies Allergy/AdvReac Type Severity Reaction Status Date / Time No Known Allergies Allergy Verified 05/10/18 22:49 Home Medications Medication Instructions Recorded Confirmed Type lisinopril 20 mg PO BID 05/09/18 05/10/18 History Exam Vital signs: Vital Signs 05/12/18 12:00 05/12/18 15:07 05/12/18 16:20 Temperature 97.1 F L 97.2 F L 98 F Pulse Rate 68 87 82 Respiratory Rate 19 20 16 Blood Pressure 165/76 H 150/77 H 116/55 L Pulse Oximetry 97 97 96 05/12/18 16:33 05/12/18 16:43 05/12/18 16:48 Temperature 97.6 F Pulse Rate 70 72 67 Respiratory Rate 16 16 Blood Pressure 138/59 L 150/80 H Pulse Oximetry 96 97 05/12/18 17:18 05/12/18 17:38 05/12/18 20:00 Temperature 98.4 F 97.3 F L Pulse Rate 64 80 71 Respiratory Rate 16 20 16 Blood Pressure 150/86 H 130/60 124/55 L Pulse Oximetry 96 97 95 05/13/18 00:00 05/13/18 08:00 05/13/18 10:56 Temperature 96.9 F L 98.5 F Pulse Rate 63 93 H Respiratory Rate 18 18 18 Blood Pressure 104/51 L 131/62 Pulse Oximetry 96 98 Intake & Output 05/12/18 05/13/18 05/13/18 18:59 06:59 18:59 Intake Total 1470 / 1470 440 / 440 100 / 100 Output Total 400 / 400 Balance 1070 / 1070 440 / 440 100 / 100 Weight 84 kg Intake: IV 100 / 100 200 / 200 100 / 100 Unasyn Inj 3 GM In NS Inj 100 100 / 100 200 / 200 100 / 100 ML @ 200 mls/hr IV.SIG Q6H [facility] Rx#:[id number] Oral 770 / 770 240 / 240 Anesthesia Amount 450 / 450 Other 150 / 150 Output: Urine 400 / 400 Other: Other Intake Source Saline Solution # Voids 0 3 - Constitutional no acute distress, obese - Routine HEENT Exam Head: Present: normocephalic, atraumatic Eye: Present: EOMI, PERRL ENT: Present: mucous membranes moist - Routine Neck Exam Present: supple, full ROM - Routine Chest/Breast/Axilla Exam Chest wall: Absent: tenderness - Routine Respiratory Exam Present: CTA bilaterally. Absent: accessory muscle use - Routine Cardiovascular Exam Present: RRR, S1, S2. Absent: murmur - Routine Abdominal Exam Present: soft, normoactive bowel sounds. Absent: tenderness, distended - Detailed Upper Extremity Exam Forearm: Left swelling, Left warmth Hand/Fingers: Left erythema, Left wound, Left warmth - Routine Neurological Exam Present: alert, oriented X3 Results - Labs CBC & Chem 7: 05/11/18 07:00 05/11/18 07:00 - Imaging Impressions Forearm MRI 05/12/18 00:00 CONCLUSION: 1. Cellulitis of the forearm, predominantly on the ulnar aspect some mild inflammatory/edematous changes in the adjacent musculature as well. No marrow signal abnormality seen to suggest osteomyelitis. No discrete abscess is seen. Hand MRI 05/12/18 00:00 CONCLUSION: 1. Cellulitis predominantly on the dorsum of the hand with small subcutaneous abscess overlying the third metacarpal measuring about 12 mm. No evidence for osteomyelitis. Assessment and Plan (1) Cat bite Status: Acute Code(s): W55.01XA - Bitten by cat, initial encounter (2) Cellulitis Status: Acute Code(s): L03.90 - Cellulitis, unspecified - Plan Follow up on cultures Patient insisting on going home today Will need to follow as outpatient closely with Hand surgery and ID Will put patient on PO Augmentin and Cipro with outpatient follow up. Patient will need completion of Rabies series.
[2018-05-13 11:51] VITALS: PULSE 80; TEMP 97.7; O2SAT 97
[2018-05-13] MEDS ORDERED: [UNRECOGNIZED DRUG - OTHER] IM ONE (12:00)
[2018-05-13] MEDS ORDERED: [UNRECOGNIZED DRUG - OTHER] IM ONE (12:00)
--- NOTE | 2018-05-13 12:17 | ECG ---
Date Performed: 05/12/2018 Time Performed: 14:20:31 PTAGE: 78 years EKG: Sinus rhythm LOW QRS VOLTAGE IN PRECORDIAL LEADS BORDERLINE ECG NO PREVIOUS TRACING DOCTOR: Isaias Cruz Interpretating Date/Time 05/13/2018 12:11:07
--- NOTE | 2018-05-13 14:21 | P.DCO ---
- Home Health Nursing Order: Medical education, Signs/symptoms of disease process, Medication education-adverse effect, Nursing assessment with vital signs - Case Management Consult No - Certification I have seen patient Monet Tan on 05/13/18. My clinical findings support the need for the requested home health care services because: Deconditioned with increased weakness, Limited ability to care for self, High risk of falls, Infection with risk of complications I certify that my clinical findings support that this patient is homebound because: Post-op weakness, Unsteady gait/balance, Unsafe to leave home unassisted, Non- ambulatory: confined to bed or chair, Unable to use public transportation
[2018-05-13] MEDS ORDERED: Pharmacy Ordered Lab Info OTHER ONE (20:45)
== END 2018-05-13 14:59 | disposition home health service (06) ==
LOC: PHEDA 21:57 → PHED 21:57 → PH3 05-11 00:37
PROVIDERS: ADMIT Hospitalist; ATTEND Hospitalist
PROC: DEBRIDE (2018-05-12 15:18)